=== PATIENT | female | born 1960 | race Caucasian/White ===

== ENCOUNTER 2016-05-09 10:35 | Emergency (ER) | payer OTHER ==
[2016-05-09 10:46] VITALS: BP 122/75
[2016-05-09] MEDS ORDERED: Ibuprofen TAB* 400 MG PO ONE (11:05)
--- NOTE | 2016-05-09 11:06 | UC ---
Shoulder Pain HPI - HPI Summary HPI Summary: 55 female presents today complaining of left shoulder and left knee pain that began this morning around 7am after slipping while getting out of her truck to go into work. She states she did not fall onto the ground but she caught her self while slipping and twisted both her left knee and left shoulder. She states she hit her shoulder on the car door and feels as though that got the brunt of it. She describes the pain as dull and achey and about a 7/10 that becomes sharp with certain movements. She states the pain got worse around 9am which is when she decided to come to . She did try taking 200mg of ibuprofen around 9 am which gave her some relief. Denies hearing or feeling any popping sensation. She is able to bear weight and walk with a limp on her left knee. Bending makes the pain worse, although she is able to do so. Her shoulder pain is worse with movement and better with rest. Her shoulder seems to be causing her the most pain. Denies radiation, LOC, back or neck pain, difficulty breathing, chest pain, hitting her head, and numbness/tingling. No pertinent PMHx. This a worker's compensation case. Injuries described are likely with given scenario. - History of Current Complaint Chief Complaint: UCUpperExtremity Stated Complaint: LEFT KNEE/SHOULDER INJURY W/C Time Seen by Provider: 05/09/16 10:46 Hx Obtained From: Patient Hx Last Menstrual Period: menopause/ tubal ?: No Onset/Duration: Sudden Onset, Lasting Hours, Worse Since Timing: Constant Severity Initially: Mild Severity Currently: Moderate Location Of Pain: Is Discrete @ - Left should and left knee Pain Intensity: 7 Pain Scale Used: 0-10 Numeric Character: Sharp, Dull, Aching Aggravating Factor(s): Movement, Lifting, Flexion, Internal Rotation, External Rotation, Abduction Alleviating Factor(s): Rest, OTC Meds Associated Signs And Symptoms: Positive: Negative. Negative: Swelling, Redness , Bruising, Numbness/Tingling Related History: Dominant Hand Right - Allergies/Home Medications Allergies/Adverse Reactions: Allergies Allergy/AdvReac Type Severity Reaction Status Date / Time No Known Allergies Allergy Verified 05/09/16 10:41 Home Medications: Home Medications Ibuprofen [Advil] 400 mg PO ONCE PRN 05/09/16 [History Confirmed 05/09/16] PMH/Surg Hx/FS Hx/Imm Hx Previously Healthy: Yes Endocrine History Of: Denies: Diabetes, Thyroid Disease Cardiovascular History Of: Denies: Cardiac Disorders, Hypertension Respiratory History Of: Denies: COPD, Asthma GI/ History Of: Denies: Ulcer - Surgical History Surgical History: Yes Surgery Procedure, Year, and Place: T&A. Tubal - Family History Known Family History: Positive: None - Social History Alcohol Use: Occasionally Substance Use Type: None Smoking Status (MU): Former Smoker Amount Used/How Often: ~ 1 ppd Length of Time of Smoking/Using Tobacco: started ~ age 18 When Did the Patient Quit Smoking/Using Tobacco: 2014 - Immunization History Most Recent Influenza Vaccination: Fall 2014 Review of Systems Constitutional: Negative Skin: Negative Eyes: Negative ENT: Negative Respiratory: Negative Cardiovascular: Negative Gastrointestinal: Negative Genitourinary: Negative Motor: Decreased ROM, Other - left knee feels weak and as if it is going to give out when walking Neurovascular: Negative Musculoskeletal: Arthralgia, Decreased ROM, Myalgia Neurological: Negative Psychological: Negative All Other Systems Reviewed And Are Negative: Yes Physical Exam Triage Information Reviewed: Yes Appearance: Well-Appearing, Well-Nourished, Pain Distress - mild during movement Vital Signs: Initial Vital Signs Temp 97.3 F 05/09/16 10:42 Pulse 75 05/09/16 10:42 Resp 14 05/09/16 10:42 BP 122/75 05/09/16 10:42 Pulse Ox 100 05/09/16 10:42 Vital Signs Reviewed: Yes Eye Exam: Normal ENT Exam: Normal Neck: Positive: Supple, Nontender Respiratory: Positive: Chest non-tender, Lungs clear, Normal breath sounds, No respiratory distress Cardiovascular: Positive: RRR, No Murmur, Pulses Normal, Brisk Capillary Refill - <2 seconds Abdominal Exam: Normal Musculoskeletal: Positive: Strength Intact - 4/5 left shoulder due to pain. b/l upper and lower extremity sensation normal., No Edema, ROM Limited @ - left shoulder: limited with abduction, internal/external rotation, and flexion/ extension. patient has greater ROM when passively moving the shoulder. Strength 4/5 due to pain. sensation intact. right shoulder normal. No obvious injuries, dislocations, step-off, ecchymosis or edema noted. Left knee: patient is able to bear weight and can walk with a slight limp. pain upon movement but full ROM. hurts worse with flexion. Neurological Exam: Normal - motor and sensation 5/5 right knee and right shoulder. sensation left knee and shoulder normal. motor left knee 5/5 with pain. left should motor 4/5 with pain Neurological: Positive: Alert, Muscle Tone Normal Psychological Exam: Normal Skin Exam: Normal - points to diffuse tenderness on anterior left shoulder and anterior, medial left knee. platella intact. Diagnostics - Radiology left shoulder x-ray Xray Interpretation: No Acute Changes - No definite fracture of the shoulder is noted with AC joint arthritis. Radiology Interpretation Completed By: Radiologist Re-Evaluation - Re-Evaluation First Eval Re-Evaluation Time: 11:40 Change: Improved - some relief after ibuprofen Shoulder Course/Dx - Course Course Of Treatment: Patient was given ibuprofen to help with pain and inflammation. She will also be prescribed it to take at home. An x-ray of knee was not necessary at this time however an x-ray of left shoulder was taken. it was negative. patient will be referred to orthopedics for further evaluation of ligaments and tendons if pain does not subside. a sling was given to her to use as needed. she will be taken out of work for 3 days or until cleared by PCP or ortho. - Differential Dx/Diagnosis Differential Diagnosis/HQI/PQRI: Contusion, Fracture (Closed), Fracture (Open), Sprain, Strain Provider Diagnoses: Left knee strain/sprain, Left shoulder strain/sprain Discharge - Discharge Plan Condition: Stable Disposition: HOME Prescriptions: Naproxen TAB* [Naprosyn TAB*] 375 mg PO Q8H PRN #14 tab PRN Reason: Pain Patient Education Materials: Shoulder Sprain (ED), Knee Sprain (ED) Forms: *Work Release Referrals: No Primary Care Phys,NOPCP [Primary Care Provider] - [facility] [Outside] Geremias Olivas MD [Medical Doctor] - Additional Instructions: Take prescribed Aleve once daily to help with pain and inflammation. Ice shoulder/knee 2-3 times a day. Limit your physical activity to what you can tolerate. Rest is important for healing. Use shoulder sling as needed for the next 2-3 days. Follow-up with orthopedics or a primary care provider within 7 days for further evaluation if you have not had any improvement. If symptoms worsen or do not improve please seek medical attention immediately or return to UC.
--- NOTE | 2016-05-09 11:34 | RAD ---
Indication: Fall, left shoulder pain. 3 views of the left shoulder demonstrates no fracture. AC joint arthritis is noted. No other bone or joint abnormality is noted. IMPRESSION: No definite fracture of the shoulder is noted with AC joint arthritis.
== END 2016-05-09 11:47 | disposition home or self-care (01) ==
LOC: UCCORT 10:35
DX: S46.912A Strain of unspecified muscle, fascia and tendon at shoulder and upper arm level, left arm, initial encounter (principal); W18.49XA Other slipping, tripping and stumbling without falling, initial encounter; Y93.89 Activity, other specified; Y92.9 Unspecified place or not applicable; M19.012 Primary osteoarthritis, left shoulder; Z87.891 Personal history of nicotine dependence
CPT/HCPCS: 99213; A9270-GY; G0463